=== PATIENT | female | born 1995 | race Two or more races ===

== ENCOUNTER 2021-12-22 14:52 | Emergency (ER) | payer SELFPAY ==
[~2021-12-22] VITALS: Ht 167.6 cm; Wt 76.0 kg
[2021-12-22] MEDS ORDERED: LEVETIRACETAM 1000MG PREMIX 100 ML IV ONE (15:30)
[2021-12-22] MEDS ORDERED: SODIUM CHLORIDE 0.9% 1,000 ML IV ONE ×2 (15:30→17:30)
[2021-12-22 15:59] LABS: BASOPHILS % 0.2 % (0.0-2.0); EOSINOPHILS % 0.6 % (0.0-5.0); HEMATOCRIT. 38.7 % (36.0-48.0); HEMOGLOBIN. 13.1 g/dL (12.0-16.0); LYMPHOCYTES % 30.7 % (20.0-50.0); MEAN CORPUSCULAR HEMOGLOBIN 28.9 pg (28.0-32.0); MEAN CORPUSCULAR VOLUME 85.4 fL (81.0-99.0); MEAN PLATELET VOLUME 8.9 fl (7.4-10.4); MONOCYTES % 7.7 % (2.0-8.0); NEUTROPHILS % 60.8 % (40.0-76.0); PLATELET 185 x1000/uL (130-400); RED BLOOD CELL COUNT 4.54 mill/uL (4.2-5.4); RED CELL DISTRIBUTION WIDTH 12.3 % (11.6-14.6)
[2021-12-22 16:10] LABS: CHLORIDE 102 mEq/L (98-107)
[2021-12-22 16:23] LABS: ETHANOL BLOOD < 10 mg/dL; HCG SCREEN NEGATIVE; PHOSPHORUS 2.5 mg/dL (2.5-4.9)
[2021-12-22 19:00] VITALS: BP 98/62
[2021-12-22] MEDS ORDERED: KEPP500 MT (19:06)
== END 2021-12-22 19:33 | disposition home or self-care (01) ==
LOC: ER 14:52 → EDSEX 14:52 → ER 19:33
DX: R56.9 Unspecified convulsions (principal); F32.9 Major depressive disorder, single episode, unspecified
CPT/HCPCS: 36415; 71045; 80053; 80320; 83605; 83735; 84100; 84484; 84703; 85025; 93005; 96361; 96365; 99285; J1953; J7030; G0480